=== PATIENT | female | born 1980 | race Caucasian/White ===

== ENCOUNTER 2018-03-08 22:47 | Inpatient (IN) | payer OTHER ==
[~2018-03-08] VITALS: Ht 170.2 cm; Wt 89.5 kg
--- NOTE | 2018-03-08 22:47 | NUR ---
Patient BIBA ACLS accompanied by [place] [employer], transferred to bed 10. Dr. Peters and RN evaluating patient at bedside.
[2018-03-08 22:48] VITALS: BP 106/69
--- NOTE | 2018-03-08 22:48 | NUR ---
PATIENT PRESENTS TO ED WITH [place] [facility] AND [facility] AFTER TAKING AN XANEX, AMBIEN, ALCOHOL AND STATING SHE WANTS TO KILL HER SELF PER [facility]. PATIENT DENIES ANY SUICIDAL AND HOMICIDAL THOUGHTS AT THIS TIME. PT STATES N/V SKIN IS PINK/WARM/DRY; AAOX4; PATIENT PRESENTS WITH GENERALIZED WEAKNESS AND LETHARGIC; LUNGS CLEAR BL; HR EVEN AND REGULAR; PT DENIES ANY FEVER, CP, SOB, OR COUGH AT THIS TIME; PATIENT STATES PAIN OF 0/10 AT THIS TIME; VSS; PATIENT POSITIONED FOR COMFORT; HOB ELEVATED; BEDRAILS UP X2; BED DOWN. EMT AT BEDSIDE. ER MD MADE AWARE OF PT STATUS.
--- NOTE | 2018-03-08 23:03 | NUR ---
POISON CONTROL CALLED IN REGARDS TO PT'S OVERDOSE. 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 PER PHARMACYST NOT TO GIVE ANTIDOTE FOR XANAX D/T COULD SEND PT INTO WITHDRAWLS SEIZURES D/T PT TAKES THIS MEDS DAILY. PER PHARMACYST TO MONITOR TYLENOL, ASPIRIN AND ALCOHOL LEVELS X 1 TIME UNLESS ONE OF THESE LABS COMES BACK ABNORMAL TO REPEAT LABS IN 2 HRS. PER PHARMACYST SHE WILL F/U ON PT LATER. ER MADE AWARE.
[2018-03-08 23:19] LABS: BASOPHILS % (AUTO) 0.4 % (0.0-2.0); EOSINOPHILS # (AUTO) 0.1 K/uL (0-0.4); EOSINOPHILS % (AUTO) 1.3 % (0.0-4.0); HEMATOCRIT 37.9 % (36-48); HEMOGLOBIN 12.6 g/dL (12.0-16.0); LYMPHOCYTES # (AUTO) 2.2 K/uL (2.5-16.5); LYMPHOCYTES % (AUTO) 24.2 % (20.5-51.1); MEAN CORPUSCULAR HEMOGLOBIN 33 pg (27-31); MEAN CORPUSCULAR HGB CONC 33 g/dL (33-37); MEAN CORPUSCULAR VOLUME 98.9 fL (80-94); MONOCYTES # (AUTO) 0.5 K/uL (0.8-1.0); MONOCYTES % (AUTO) 5.3 % (1.7-9.3); NEUTROPHILS # (AUTO) 6.3 K/uL (1.8-7.7); NEUTROPHILS % (AUTO) 68.8 % (42.2-75.2); PLATELET COUNT (AUTO) 196 K/uL (140-450); RED BLOOD CELL COUNT(AUTO) 3.83 MIL/uL (4.20-5.40); RED CELL DISTRIBUTION WIDTH 14.1 % (11.6-13.7); WHITE BLOOD COUNT (AUTO) 9.2 K/uL (4.8-10.8)
[2018-03-08 23:23] LABS: APPEARANCE,URINE CLEAR (CLEAR); BILIRUBIN,URINE NEGATIVE (NEGATIVE); BLOOD, URINE NEGATIVE (NEGATIVE); COLOR,URINE YELLOW (YELLOW); LEUKOCYTE ESTERASE ,URINE NEGATIVE (NEGATIVE); NITRITE, URINE NEGATIVE (NEGATIVE); UGLUCOSE NEGATIVE (NEGATIVE)
[2018-03-08 23:24] LABS: ANION GAP 13.9 (8-16); CARBON DIOXIDE 25.6 mmol/L (21-32); CHLORIDE 105 mmol/L (98-107); CREATININE 0.8 mg/dL (0.6-1.3); GFR ARICAN-AMERICAN 105 mL/min (>90); GLUCOSE 108 mg/dL (74-106); POTASSIUM 3.5 mmol/L (3.5-5.1); SODIUM SERUM 141 mmol/L (136-145); UREA NITROGEN, BLOOD 16 mg/dL (7-18)
[2018-03-08 23:29] LABS: ALBUMIN 3.3 g/dL (3.4-5.0); ASPARTATE AMINOTRANSFERASE 16 U/L (15-37); TOTAL BILIRUBIN 0.2 mg/dL (0.0-1.0)
[2018-03-08 23:30] LABS: ACETAMINOPHEN < 0.5 ug/ml (10-30); SALICYLATE < 2.8 mg/dL (2.8-20.0)
[2018-03-09] MEDS ORDERED: NACL 0.9% 1,000 ML IV ONE ×3 (00:25→05:10)
--- NOTE | 2018-03-09 00:30 | NUR ---
PATIENTS BP DROPPED 88/61 ER MD AWARE. IV FLUIDS GIVEN BOLUS
--- NOTE | 2018-03-09 00:33 | NUR ---
Call Center aware of patient.
--- NOTE | 2018-03-09 02:27 | NUR ---
Called [facility] and spoke with Sidney. No beds. Called [facility] and spoke with intake. No beds, packet faxed to put pt on waitlist. Called [facility] and spoke with Karen. No beds. Called [facility] and spoke with Livia. No beds, but pending discharges in the AM. Will follow up. Called [facility] and spoke with intake. No beds. Called [facility] and spoke with intake. No beds.
--- NOTE | 2018-03-09 03:57 | NUR ---
PATIENTS BP 95/56 ER MD AWARE. BOLUS GIVEN
--- NOTE | 2018-03-09 04:41 | NUR ---
PATIENTS BP 89/[address] DAVIS AWARE. 3RD BOLUS NS GIVEN PER MD ORDER
--- NOTE | 2018-03-09 06:35 | NUR ---
PATIENT NON COMPLIANT. SOFT WRIST RESTRAINTS IN USE PER ER MD DR DAVIS. CAP REFILL <3 PATIENT TOLERATED WELL.
--- NOTE | 2018-03-09 07:10 | NUR ---
Evan barrett in [facility] - 03/09/18 at 0718 by DAVIDE Pt report given to ALBINA OROZCO AND ALBINA VELAZQUEZ . Transfer of care at this time.
--- NOTE | 2018-03-09 07:16 | NUR ---
Pt report given to MARCUS MONTEMAYOR, KEEGAN MONTEMAYOR. Transfer of care at this time.
--- NOTE | 2018-03-09 07:16 | NUR ---
RECEIVED REPORT FROM ALBINA CAMPBELL . PT ALERT AND ORIENTED VSS. WILL CONTINUE TO MONITOR.
--- NOTE | 2018-03-09 07:58 | NUR ---
BREAKFAST BROUGHT TO PT BEDSIDE. SHE STATES " I DO NOT WANT TO EAT, I WANT TO GO HOME , AND CALL MY TO COME PICK ME UP".
--- NOTE | 2018-03-09 08:14 | NUR ---
PT. GIVEN PHONE TO CALL , CALLED A COUPLE OF TIMES AND NO ANSWER.
--- NOTE | 2018-03-09 08:40 | NUR ---
PT. SLEEPING IN BED, CAP REFILL LESS THAN 3 SEC. HANDS WARM AND DRY TO TOUCH BILATERALLY.
--- NOTE | 2018-03-09 09:28 | NUR ---
PT. SPOKE TO HER , OFFERED HER THE BREAKFAST TRAY AND SHE DENIED WANTING TO EAT. VSS. WILL CONTINUE TO MONITOR.
--- NOTE | 2018-03-09 10:28 | NUR ---
ARRIVED AT BEDSIDE.
[2018-03-09] MEDS ORDERED: LORazepam 2 MG/ML VIAL IVP ONE (10:30)
[2018-03-09] MEDS ORDERED: diphenhydrAMINE 50 MG/ML VIAL IVP ONE (10:30)
--- NOTE | 2018-03-09 10:30 | NUR ---
REMOVED SOFT RESTRAINTS, CAP REFILL LESS THAN 3 SECONDS , SKIN WARM AND DRY TO TOUCH AND NO C/O OF NUMBNESS OR TINGLING. AT BEDSIDE. WILL CONTINUE TO MONITOR.
--- NOTE | 2018-03-09 10:40 | NUR ---
PT. REFUSED TO USE BEDPAN AND WANTS TO GO TO THE BATHROOM, PATIENT TAKEN VIA WHEELCHAIR TO THE RESTROOM.
--- NOTE | 2018-03-09 10:45 | NUR ---
PT. BACK IN BED, CHANGED GOWN AND SHEETS, SLEEPING , RR EVEN AND UNLABORED, AT BEDSIDE. WILL CONTINUE TO MONITOR.
[2018-03-09 11:30] VITALS: BP 110/60
--- NOTE | 2018-03-09 11:30 | NUR ---
RECEIVED REPORT FROM ER NURSE REGARDING THE PT THAT IS TRANSPORTED VIA THE GURNEY. PT IS AWAKE, WITH AN IV LINE AT THE RIGHT HAND AND ACCOMPANIED BY THE . VITAL SIGNS TAKEN AND PT MADE COMFORTABLE ON THE BED. 1:1 SITTER ON THE BEDSIDE. NO SIGNS OF DISTRESS NOTED AT THIS TIME. WILL CONTINUE TO MONITOR.
--- NOTE | 2018-03-09 11:45 | NUR ---
Patient will be admitted to care of DR CRANDALL . Admited to Med/Surg. Will go to room 109B. Belongings list completed. Report to ALBINA JAIME.
--- NOTE | 2018-03-09 13:00 | NUR ---
PT WENT TO THE RESTROOM ASSISTED BY THE . PT WENT BACK TO BED. NO SIGNS OF DISTRESS NOTED. WILL MONITOR.
--- NOTE | 2018-03-09 14:33 | NUR ---
FAXED OVER FACE SHEET TO DR. NUNEZ/DR. RAY FOR PSYCH CONSULT.
--- NOTE | 2018-03-09 14:55 | NUR ---
[facility] for [facility]. There are currently no beds available at this time.
[2018-03-09] MEDS ORDERED: MORPHINE SULFATE 4 MG/ML SYR IVP PRN (15:10)
[2018-03-09] MEDS ORDERED: ONDANSETRON 4 MG/2 ML VIAL IVP PRN (15:10)
[2018-03-09] MEDS ORDERED: ACETAMINOPHEN 325 MG TAB PO PRN (15:10)
[2018-03-09] MEDS ORDERED: LORazepam 2 MG/ML VIAL IVP PRN (15:30)
--- NOTE | 2018-03-09 15:45 | NUR ---
PSYCH CONSULT, DR. AFRICA RAY CAME AND CHECKED THE PT. PT IS LYING ON THE BED, AWAKE. NO SIGNS OF DISTRESS NOTED. WILL MONITOR.
[2018-03-09 16:00] VITALS: BP 106/68
--- NOTE | 2018-03-09 16:04 | NUR ---
DR. AFRICA RAY CLEARED THE PT FROM 5150. PT IS OK TO BE DISCHARGE IF MEDICALLY CLEARED.
--- NOTE | 2018-03-09 16:09 | NUR ---
Placement packets have been sent to the following facilities for placement: [facility], spoke with Kaylynn, there is no packet currently on file with them. They have requested packet to be resent. [facility], spoke with Jazmyne, she confirmed packet has been received and patient has been accepted; she states once bed becomes available they will contact the hospital. [facility], spoke with Mayank, there is currently beds available. They have requested packet to be sent. [facility], spoke with Jazmyne, they currently do not have packet; she is requested packet to be sent for review. They currently have one bed available after discharges in the afternoon.
--- NOTE | 2018-03-09 17:45 | NUR ---
DISCHARGE INSTRUCTIONS GIVEN, ID WRIST BAND REMOVED, IV REMOVED, CATHETER TIP INTACT.
--- NOTE | 2018-03-09 17:55 | NUR ---
DISCHARGED PT VIA WHEELCHAIR WITH THE FAMILY. PT IS STABLE AND ESCORTED TO THE FRONT LOBBY. AND RODE IN THE CAR WITH THE FAMILY.
--- NOTE | 2018-03-10 07:36 | NUR ---
RETRO FAXED ER REPORT, H&P , CONSULT AND DISCHARGE SUMMARY TO [facility] [phone] PHONE LAUREN [phone]
[2018-03-10] MEDS ORDERED: ENOXAPARIN 40 MG/0.4 ML SYR SUBQ SCH (09:00)
== END 2018-03-09 17:55 | disposition home or self-care (01) | DRG 812 ==
LOC: MED 22:47 → MTU 03-09 11:01
PROVIDERS: ADMIT Hospitalist; ATTEND Hospitalist
DX: T42.4X2A Poisoning by benzodiazepines, intentional self-harm, initial encounter (principal); F33.2 Major depressive disorder, recurrent severe without psychotic features; F41.0 Panic disorder [episodic paroxysmal anxiety]; F10.10 Alcohol abuse, uncomplicated; T42.6X2A Poisoning by other antiepileptic and sedative-hypnotic drugs, intentional self-harm, initial encounter; F41.9 Anxiety disorder, unspecified; T39.312A Poisoning by propionic acid derivatives, intentional self-harm, initial encounter; Y92.89 Other specified places as the place of occurrence of the external cause; Z98.82 Breast implant status
CPT/HCPCS: 36415; 80053; 81003; 84702; 85025; 87081; 93005; 96361; 96374; 96375; 99285; C1758; G0480; G0482; J1200; J2060; J7030